=== PATIENT | female | born 1990 | race Caucasian/White ===

== ENCOUNTER 2016-09-03 16:20 | Emergency (ER) | payer OTHER | END 2016-09-03 17:01 | disposition left against medical advice (07) | LOC: UCCORT 16:20 | DX: R09.89 Other specified symptoms and signs involving the circulatory and respiratory systems (principal); H93.93 Unspecified disorder of ear, bilateral; Z53.21 Procedure and treatment not carried out due to patient leaving prior to being seen by health care provider ==

== ENCOUNTER 2016-12-14 08:08 | Emergency (ER) | payer BC ==
--- NOTE | 2016-12-14 08:12 | UC ---
Throat Pain/Nasal Morris HPI - HPI Summary HPI Summary: 26 YEAR OLD FEMALE PRESENTS WITH SORE THROAT, FEVER, AND PAIN. - History of Current Complaint Stated Complaint: SORE THROAT,BODY ACHES Time Seen by Provider: 12/14/16 08:11 Hx Last Menstrual Period: 04/04/16 - Allergies/Home Medications Allergies/Adverse Reactions: Allergies Allergy/AdvReac Type Severity Reaction Status Date / Time Gluten Meal Allergy GI Upset Verified 12/14/16 08:13 Hydrocodone Allergy Vomiting Verified 12/14/16 08:13 [From Hydrocodone W/Acetaminophen] Metronidazole Allergy Vomiting Verified 12/14/16 08:13 Morphine Allergy See Comment Verified 12/14/16 08:13 Oxycodone Allergy Vomiting Verified 12/14/16 08:13 [From Oxycodone W/Acetaminophen] Pertussis Vaccine Allergy See Comment Verified 12/14/16 08:13 Prednisone Allergy Hives Verified 12/14/16 08:13 Sulfa Drugs Allergy Rash Verified 12/14/16 08:13 Tramadol [From Ultram] Allergy Rash Verified 12/14/16 08:13 PMH/Surg Hx/FS Hx/Imm Hx Other History Of: Negative For: Anticoagulant Therapy - Surgical History Surgical History: Yes Surgery Procedure, Year, and Place: back surgery 2012, hand surgery x 4 - Family History Known Family History: Positive: None Negative: Cardiac Disease, Hypertension, Diabetes - Social History Alcohol Use: Occasionally Substance Use Type: None Smoking Status (MU): Former Smoker Type: Cigarettes When Did the Patient Quit Smoking/Using Tobacco: 2009 - Immunization History Most Recent Tetanus Shot: when pt was 17 years old Review of Systems Constitutional: Negative Skin: Negative Eyes: Negative ENT: Sore Throat, Ear Ache, Nasal Discharge, Sinus Congestion, Sinus Pain/ Tenderness Respiratory: Negative Cardiovascular: Negative Gastrointestinal: Negative Genitourinary: Negative Motor: Negative Neurovascular: Negative Musculoskeletal: Negative Neurological: Negative Psychological: Negative All Other Systems Reviewed And Are Negative: Yes Physical Exam Triage Information Reviewed: Yes Eye Exam: Normal ENT Exam: Normal ENT: Positive: Pharynx normal, Pharyngeal erythema, Tonsillar swelling Dental Exam: Normal Neck exam: Normal Neck: Positive: 1 Respiratory Exam: Normal Cardiovascular Exam: Normal Abdominal Exam: Normal Musculoskeletal Exam: Normal Neurological Exam: Normal Psychological Exam: Normal Skin Exam: Normal Throat Pain/Nasal Course/Dx - Differential Dx/Diagnosis Provider Diagnoses: STREP THROAT. EAR PAIN. POST NASAL DRIP Discharge - Discharge Plan Condition: Stable Disposition: HOME Prescriptions: Amoxicillin/Clavulanate TAB* [Augmentin TAB 875*] 875 mg PO BID #30 tab LoraTADine TAB(NF) [Claritin 10 MG TAB(NF)] 10 mg PO DAILY #30 tab Magic M W2 Peña/Maal/Nyst/Lido* 15 ml SWISH SPIT QID #120 ml Patient Education Materials: Pharyngitis (ED), Strep Throat (ED), Cold Symptoms (ED) Forms: *Work Release Referrals: Carlos Cavanaugh MD [Primary Care Provider] -
[2016-12-14 08:17] VITALS: BP 112/73
== END 2016-12-14 08:37 | disposition home or self-care (01) ==
LOC: UCCORT 08:08
DX: J02.0 Streptococcal pharyngitis (principal); H92.09 Otalgia, unspecified ear; R09.82 Postnasal drip; Z87.891 Personal history of nicotine dependence; Z88.5 Allergy status to narcotic agent; Z88.2 Allergy status to sulfonamides
CPT/HCPCS: 87651; 99212; G0463

== ENCOUNTER 2017-02-01 21:30 | Emergency (ER) | payer BC ==
--- NOTE | 2017-02-01 21:33 | UC ---
Throat Pain/Nasal Morris HPI - HPI Summary HPI Summary: 26 YEAR OLD FEMALE PRESENTS WITH COMPLAINS OF SINUS PRESSURE, POST NASAL DRIP , AND SORE THROAT. - History of Current Complaint Stated Complaint: SORE THROAT,BODY ACHES Time Seen by Provider: 02/01/17 21:32 Hx Obtained From: Patient Hx Last Menstrual Period: 04/04/16 Onset/Duration: Sudden Onset Severity: Moderate Pain Scale Used: 0-10 Numeric - 5 Cough: Nonproductive Associated Signs & Symptoms: Positive: Negative - Allergies/Home Medications Allergies/Adverse Reactions: Allergies Allergy/AdvReac Type Severity Reaction Status Date / Time Gluten Meal Allergy GI Upset Verified 02/01/17 21:39 Hydrocodone Allergy Vomiting Verified 02/01/17 21:39 [From Hydrocodone W/Acetaminophen] Metronidazole Allergy Vomiting Verified 02/01/17 21:39 Morphine Allergy See Comment Verified 02/01/17 21:39 Oxycodone Allergy Vomiting Verified 02/01/17 21:39 [From Oxycodone W/Acetaminophen] Pertussis Vaccine Allergy See Comment Verified 02/01/17 21:39 Prednisone Allergy Hives Verified 02/01/17 21:39 Sulfa Drugs Allergy Rash Verified 02/01/17 21:39 Tramadol [From Ultram] Allergy Rash Verified 02/01/17 21:39 Home Medications: Home Medications Magnesium 250 mg PO DAILY 02/01/17 [History Confirmed 02/01/17] PMH/Surg Hx/FS Hx/Imm Hx Previously Healthy: Yes Other History Of: Negative For: Anticoagulant Therapy - Surgical History Surgical History: Yes Surgery Procedure, Year, and Place: back surgery 2012, hand surgery x 4 - Family History Known Family History: Positive: None Negative: Cardiac Disease, Hypertension, Diabetes - Social History Alcohol Use: Occasionally Substance Use Type: None Smoking Status (MU): Former Smoker Type: Cigarettes When Did the Patient Quit Smoking/Using Tobacco: 2009 - Immunization History Most Recent Tetanus Shot: when pt was 17 years old Review of Systems Constitutional: Negative Skin: Negative Eyes: Negative ENT: Sore Throat, Nasal Discharge, Sinus Congestion, Sinus Pain/Tenderness Respiratory: Negative Cardiovascular: Negative Gastrointestinal: Negative Genitourinary: Negative Motor: Negative Neurovascular: Negative Musculoskeletal: Negative Neurological: Negative Psychological: Negative All Other Systems Reviewed And Are Negative: Yes Physical Exam Triage Information Reviewed: Yes Vital Signs Reviewed: Yes Eye Exam: Normal ENT: Positive: Pharyngeal erythema, Nasal congestion Dental Exam: Normal Neck exam: Normal Neck: Positive: 1 Respiratory Exam: Normal Cardiovascular Exam: Normal Abdominal Exam: Normal Musculoskeletal Exam: Normal Neurological Exam: Normal Psychological Exam: Normal Skin Exam: Normal Throat Pain/Nasal Course/Dx - Differential Dx/Diagnosis Provider Diagnoses: SINUSITIS. NASAL CONGESTION. ALLERGIC RHINNITIS Discharge - Discharge Plan Condition: Stable Disposition: HOME Prescriptions: LoraTADine TAB(NF) [Claritin 10 MG TAB(NF)] 10 mg PO DAILY #30 tab Magic M W2 Peña/Maal/Nyst/Lido* 15 ml SWISH SPIT QID #120 ml Patient Education Materials: Strep Throat (ED) Referrals: Carlos Cavanaugh MD [Primary Care Provider] -
[2017-02-01 21:39] VITALS: BP 119/80
== END 2017-02-01 22:17 | disposition home or self-care (01) ==
LOC: UCCORT 21:30
DX: J32.9 Chronic sinusitis, unspecified (principal); J30.9 Allergic rhinitis, unspecified
CPT/HCPCS: 87502; 87651; 99212; G0463

== ENCOUNTER 2017-03-21 20:33 | Emergency (ER) | payer BC ==
[2017-03-21 20:41] VITALS: BP 124/69
--- NOTE | 2017-03-21 20:43 | UC ---
Throat Pain/Nasal Morris HPI - HPI Summary HPI Summary: 26 year old female presents with ongoing cold like symptoms. - History of Current Complaint Chief Complaint: UCGeneralIllness Stated Complaint: COUGH/SORE THROAT/FEVER Time Seen by Provider: 03/21/17 20:42 Hx Obtained From: Patient Hx Last Menstrual Period: 04/04/16 Onset/Duration: Sudden Onset Severity: Moderate Pain Scale Used: 0-10 Numeric - 5 Cough: Nonproductive - Allergies/Home Medications Allergies/Adverse Reactions: Allergies Allergy/AdvReac Type Severity Reaction Status Date / Time Gluten Meal Allergy GI Upset Verified 03/21/17 20:41 Hydrocodone Allergy Vomiting Verified 03/21/17 20:41 [From Hydrocodone W/Acetaminophen] Metronidazole Allergy Vomiting Verified 03/21/17 20:41 Morphine Allergy See Comment Verified 03/21/17 20:41 Oxycodone Allergy Vomiting Verified 03/21/17 20:41 [From Oxycodone W/Acetaminophen] Pertussis Vaccine Allergy See Comment Verified 03/21/17 20:41 Prednisone Allergy Hives Verified 03/21/17 20:41 Sulfa Drugs Allergy Rash Verified 03/21/17 20:41 Tramadol [From Ultram] Allergy Rash Verified 03/21/17 20:41 PMH/Surg Hx/FS Hx/Imm Hx Previously Healthy: Yes Other History Of: Negative For: Anticoagulant Therapy - Surgical History Surgical History: Yes Surgery Procedure, Year, and Place: back surgery 2012, hand surgery x 4 - Family History Known Family History: Positive: None Negative: Cardiac Disease, Hypertension, Diabetes - Social History Alcohol Use: Occasionally Substance Use Type: None Smoking Status (MU): Former Smoker Type: Cigarettes When Did the Patient Quit Smoking/Using Tobacco: 2009 - Immunization History Most Recent Tetanus Shot: when pt was 17 years old Review of Systems Constitutional: Chills, Fatigue Skin: Negative Eyes: Negative ENT: Sore Throat, Nasal Discharge, Sinus Congestion, Sinus Pain/Tenderness Respiratory: Negative Cardiovascular: Negative Gastrointestinal: Negative Genitourinary: Negative Motor: Negative Neurovascular: Negative Musculoskeletal: Negative Neurological: Negative Psychological: Negative All Other Systems Reviewed And Are Negative: Yes Physical Exam Triage Information Reviewed: Yes Vital Signs: Initial Vital Signs Temp 37.7 C 03/21/17 20:38 Pulse 94 03/21/17 20:38 Resp 16 03/21/17 20:38 BP 124/69 03/21/17 20:38 Pulse Ox 100 03/21/17 20:38 Vital Signs Reviewed: Yes Eye Exam: Normal ENT Exam: Normal ENT: Positive: Pharyngeal erythema, Nasal congestion Dental Exam: Normal Neck exam: Normal Neck: Positive: 1 Respiratory Exam: Normal Cardiovascular Exam: Normal Abdominal Exam: Normal Musculoskeletal Exam: Normal Neurological Exam: Normal Psychological Exam: Normal Skin Exam: Normal Throat Pain/Nasal Course/Dx - Differential Dx/Diagnosis Provider Diagnoses: post nasal drip. fever. chills. sore throat Discharge - Discharge Plan Condition: Stable Disposition: HOME Patient Education Materials: Allergic Rhinitis (ED) Referrals: Carlos Cavanaugh MD [Primary Care Provider] -
[2017-03-22 11:33] LABS: Hematocrit 36 % (35-47); Hemoglobin 12.1 g/dl (12.0-16.0); Mean Corpuscular HGB Conc 34 g/dl (31-36); Mean Corpuscular Hemoglobin 30 pg (27-31); Mean Corpuscular Volume 89 fL (80-97); Mean Platelet Volume 9 um3 (7.4-10.4); Red Blood Count 4.03 10^6/ul (4.0-5.4); Red Cell Distribution Width 13 % (10.5-15); White Blood Count 11.1 10^3/ul (3.5-10.8)
[2017-03-22 11:48] LABS: Albumin 3.9 g/dL (3.2-5.2); BUN/Creatinine Ratio 16.1 (8-20); Calcium 9.4 mg/dL (8.6-10.3); EGFR African American 148.5 (>60); EGFR Non-African American 115.5 (>60); Globulin 2.8 g/dL (2-4); Potassium 4.1 mmol/L (3.5-5.0); Total Bilirubin 0.6 mg/dL (0.2-1.0); Total Protein 6.7 g/dL (6.4-8.9)
--- NOTE | 2017-03-22 21:30 | ED ---
Progress - Progress Note Progress Note: left vm for patient to call back. Course/Dx - Diagnoses Provider Diagnoses: Fever
--- NOTE | 2017-03-25 08:05 | UC ---
Progress - Progress Note Progress Note: Results of throat and urine cultures reviewed. Normal mel on throat culture and urine shows no growth. If still symptomatic - should follow up with PCP as advised by Dr. Garcia in previous note - Results/Orders Results/Orders: Throat culture - Normal mel Urine culture - No growth
== END 2017-03-21 21:36 | disposition home or self-care (01) ==
LOC: UCCORT 20:33
DX: R50.9 Fever, unspecified (principal); J02.9 Acute pharyngitis, unspecified; R09.82 Postnasal drip; R53.83 Other fatigue; Z32.02 Encounter for pregnancy test, result negative; Z91.02 Food additives allergy status; Z88.8 Allergy status to other drugs, medicaments and biological substances; Z88.6 Allergy status to analgesic agent; Z88.5 Allergy status to narcotic agent; Z88.2 Allergy status to sulfonamides; Z87.891 Personal history of nicotine dependence
CPT/HCPCS: 36415; 80053; 81003; 84702; 85025; 87070; 87086; 87491; 87502; 87591; 99211; G0463

== ENCOUNTER 2017-04-11 12:54 | Emergency (ER) | payer BC ==
[2017-04-11 13:19] VITALS: BP 122/68
--- NOTE | 2017-04-11 13:35 | UC ---
Complaint Female HPI - HPI Summary HPI Summary: Pt c/o sudden onset of bilateral "kidney" pain and urinary symptoms of frequency , urgency, and dysuria. X 1 day. - History Of Current Complaint Stated Complaint: URINARY/KIDNEY PAIN Time Seen by Provider: 04/11/17 13:10 Hx Obtained From: Patient Hx Last Menstrual Period: 04/04/16 ?: No Onset/Duration: Sudden Onset, Lasting Days, Still Present, Worse Since - onset Timing: Constant Severity Initially: Mild Severity Currently: Moderate Character: Sharp, Dull, Burning Aggravating Factor(s): Urination Alleviating Factor(s): Nothing Associated Signs And Symptoms: Positive: Back Pain - Risk Factors Ovarian Torsion Risk Factor: Reproductive Age - Allergies/Home Medications Allergies/Adverse Reactions: Allergies Allergy/AdvReac Type Severity Reaction Status Date / Time Gluten Meal Allergy GI Upset Verified 04/11/17 13:19 Hydrocodone Allergy Vomiting Verified 04/11/17 13:19 [From Hydrocodone W/Acetaminophen] Metronidazole Allergy Vomiting Verified 04/11/17 13:19 Morphine Allergy See Comment Verified 04/11/17 13:19 Oxycodone Allergy Vomiting Verified 04/11/17 13:19 [From Oxycodone W/Acetaminophen] Pertussis Vaccine Allergy See Comment Verified 04/11/17 13:19 Prednisone Allergy Hives Verified 04/11/17 13:19 Sulfa Drugs Allergy Rash Verified 04/11/17 13:19 Tramadol [From Ultram] Allergy Rash Verified 04/11/17 13:19 PMH/Surg Hx/FS Hx/Imm Hx Previously Healthy: Yes Other History Of: Negative For: Anticoagulant Therapy - Surgical History Surgical History: Yes Surgery Procedure, Year, and Place: back surgery 2012, hand surgery x 4 - Family History Known Family History: Positive: None, Renal Disease - father has kidney stones Negative: Cardiac Disease, Hypertension, Diabetes - Social History Occupation: Employed Full-time Lives: With Family Alcohol Use: Occasionally Substance Use Type: None Smoking Status (MU): Former Smoker Type: Cigarettes Have You Smoked in the Last Year: No When Did the Patient Quit Smoking/Using Tobacco: 2009 - Immunization History Most Recent Tetanus Shot: when pt was 17 years old Review of Systems Constitutional: Fatigue Skin: Negative Eyes: Negative ENT: Negative Respiratory: Negative Cardiovascular: Negative Gastrointestinal: Abdominal Pain Genitourinary: Dysuria, Hematuria, Frequency, Urgency Motor: Negative Neurovascular: Negative Musculoskeletal: Negative Neurological: Negative Psychological: Negative Is Patient Immunocompromised?: No All Other Systems Reviewed And Are Negative: Yes Physical Exam Triage Information Reviewed: Yes Appearance: Pain Distress Vital Signs: Initial Vital Signs Temp 97.9 F 04/11/17 13:15 Pulse 80 04/11/17 13:15 Resp 14 04/11/17 13:15 BP 122/68 04/11/17 13:15 Pulse Ox 100 04/11/17 13:15 Vital Signs Reviewed: Yes Eye Exam: Normal ENT Exam: Normal Dental Exam: Normal Neck exam: Normal Respiratory Exam: Normal Cardiovascular Exam: Normal Abdominal Exam: Other Abdomen Description: Positive: CVA Tenderness (R), CVA Tenderness (L) Musculoskeletal Exam: Normal Neurological Exam: Normal Psychological Exam: Normal Skin Exam: Normal Complaint Female Dx - Differential Dx/Diagnosis Differential Diagnosis/HQI/PQRI: Urinary Tract Infection Provider Diagnoses: UTI. kidney stone. IMPRESSION: 1. 3 mm nonobstructing calyceal stone midpole RIGHT kidney. 2. Normal appendix documented. 3. Large volume of stool in the colon through the splenic flexure. No evidence for bowel. obstruction. 4. Physiologic small volume of free fluid in the cul-de- sac. Discharge - Discharge Plan Condition: Stable Disposition: HOME Prescriptions: Cephalexin CAP* [Keflex 500 CAP*] 500 mg PO Q12H #10 cap Patient Education Materials: Kidney Stones (ED), Urinary Tract Infection in Women (ED) Referrals: Carlos Cavanaugh MD [Primary Care Provider] - If Needed Skyler Taylor MD [Medical Doctor] - If Needed Additional Instructions: Please follow up with your PCP or return to clinic. We have also provided a referral to a Urologist for you to follow up with as needed.
--- NOTE | 2017-04-11 14:14 | RAD ---
INDICATION: RIGHT CVA tenderness. COMPARISON: October 01, 2012 ultrasound. TECHNIQUE: Multidetector CT images were obtained from the lung bases to the ischial tuberosities. Evaluation of the viscera is limited without IV contrast. Multiplanar reformation. REPORT: Unremarkable visualized inferior thorax. The liver, gallbladder, pancreas, and spleen are unremarkable. Negative for CT abnormality of the upper GI, small bowel, or retrocecal appendix visualized overlying the RIGHT external iliac vessels. Large volume of stool throughout the colon through the splenic flexure. Physiologic range small volume of free fluid in the cul-de-sac. Negative for free air or hernias. Normal adrenal glands. 3 mm nonobstructing stone medial anterior midpole RIGHT kidney. Negative for hydronephrosis. No focal renal lesions evident within limits of noncontrast CT. Negative for perinephric stranding. Unremarkable nondilated ureters and partially distended urinary bladder as well as the anteverted uterus and adnexal regions. Negative for lymphadenopathy. Normal diameter abdominal aorta and iliac arteries. Physiologic distention of the IVC. Unremarkable osseous structures. IMPRESSION: 1. 3 mm nonobstructing calyceal stone midpole RIGHT kidney. 2. Normal appendix documented. 3. Large volume of stool in the colon through the splenic flexure. No evidence for bowel obstruction. 4. Physiologic small volume of free fluid in the cul-de-sac.
--- NOTE | 2017-04-14 07:41 | UC ---
Progress - Progress Note Progress Note: + UC, sens to keflex. complete med. f/u with pcp
== END 2017-04-11 14:39 | disposition home or self-care (01) ==
LOC: UCCORT 12:54
DX: N39.0 Urinary tract infection, site not specified (principal); K59.00 Constipation, unspecified; Z32.02 Encounter for pregnancy test, result negative; Z88.6 Allergy status to analgesic agent; Z91.018 Allergy to other foods; Z88.2 Allergy status to sulfonamides; Z88.7 Allergy status to serum and vaccine; Z87.891 Personal history of nicotine dependence
CPT/HCPCS: 74176; 81003; 84702; 87077; 87086; 87186; 99212; G0463

== ENCOUNTER 2018-06-21 14:10 | Emergency (ER) | payer BC, OTHER ==
[2018-06-21 14:31] VITALS: BP 132/84
[2018-06-21] MEDS ORDERED: Ibuprofen TAB* 600 MG PO ONE (14:52)
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
== END 2018-06-21 16:04 | disposition home or self-care (01) ==
LOC: UCCORT 14:10
DX: S16.1XXA Strain of muscle, fascia and tendon at neck level, initial encounter (principal); S39.012A Strain of muscle, fascia and tendon of lower back, initial encounter; Y92.410 Unspecified street and highway as the place of occurrence of the external cause; V47.0XXA Car driver injured in collision with fixed or stationary object in nontraffic accident, initial encounter; Z88.1 Allergy status to other antibiotic agents; Z88.5 Allergy status to narcotic agent; Z88.7 Allergy status to serum and vaccine; Z88.8 Allergy status to other drugs, medicaments and biological substances; Z87.891 Personal history of nicotine dependence
CPT/HCPCS: 72050; 72110; 81003; 99212; A9270-GY; G0463